=== PATIENT | female | born 2000 | race African-American/Black ===

== ENCOUNTER 2024-03-14 07:40 | Emergency (ER) | payer OTHER ==
[~2024-03-14] VITALS: Ht 165.1 cm; Wt 46.0 kg
[2024-03-14 07:44] VITALS: O2SAT 100
[2024-03-14] MEDS: METHOCARBAMOL 500MG TABLET PO ONE (10:33)
[2024-03-14] MEDS: IBUPROFEN 600MG TABLET PO ONE (10:33)
[2024-03-14] MEDS ORDERED: IBUP-2029 MT (10:57)
[2024-03-14] MEDS ORDERED: METH-653 MT (10:57)
[2024-03-14 11:10] VITALS: BP 116/64; PULSE 74; RESP 16; TEMP 36.7; O2SAT 100
== END 2024-03-14 11:14 | disposition home or self-care (01) ==
LOC: ER 07:53
DX: S09.90XA Unspecified injury of head, initial encounter (principal); S80.12XA Contusion of left lower leg, initial encounter; Z88.0 Allergy status to penicillin; V43.52XA Car driver injured in collision with other type car in traffic accident, initial encounter; Y93.89 Activity, other specified; Y92.410 Unspecified street and highway as the place of occurrence of the external cause; Y99.8 Other external cause status
CPT/HCPCS: 70486; 73590; 99284